=== PATIENT | male | born 1960 | race Caucasian/White ===

== ENCOUNTER → 2021-01-19 | Day surgery (SDC) | payer OTHER ==
[~2021-01-19] VITALS: Ht 177.8 cm; Wt 90.7 kg
[~2021-01-19] MED LIST: ASPIRIN EC81 MG PO; CARVEDILOL12.5 MG PO; CLARITIN10 MG PO; ENTRESTO 49 MG1 EACH PO; MVI PO; POTASSIUM PO; PRAVASTATIN SOD20 MG PO; TERBINAFINE HC250 MG PO; VIT D PO; [UNRECOGNIZED DRUG - REMARK] PO
[2021-01-19 07:54] LABS: HCT 44.5 % (42.0-52.0); HGB 15.1 g/dl (13.2-18.0); MCHC 33.9 g/dL (32.0-36.0); MCV 88.3 fL (78.0-100.0); MPV 9.9 fL (6.0-9.5); RBC 5.04 M/uL (4.70-6.00); RDW 12.7 % (11.5-14.0); WBC 5.9 K/uL (4.0-10.5)
[2021-01-19 08:18] LABS: ALBUMIN 4.1 g/dL (3.4-5.0); CREATININE 0.81 mg/dL (0.67-1.17); GLOBULIN (CALCULATION) 3.4 g/dL; POTASSIUM 3.8 mmol/L (3.5-5.1); TOTAL PROTEIN 7.5 g/dL (6.4-8.2)
== END | disposition home or self-care (01) ==
LOC: FAS 06:52
PROVIDERS: Surgery
DX: Z12.11 Encounter for screening for malignant neoplasm of colon (principal); Z98.890 Other specified postprocedural states; Z79.899 Other long term (current) drug therapy
CPT/HCPCS: 36415; 80053; J2250; J2704; J7120